=== PATIENT | male | born 1965 | race Caucasian/White ===

== ENCOUNTER 2020-12-11 12:54 | Emergency (ER) | payer SELFPAY ==
[~2020-12-11] VITALS: Ht 160 cm; Wt 65.8 kg
[2020-12-11 12:57] VITALS: BP_SYST 136
--- NOTE | 2020-12-11 13:04 | NUR ---
AMBULATED TO BED 7
--- NOTE | 2020-12-11 13:10 | NUR ---
Dr. farooq at bedside
--- NOTE | 2020-12-11 13:15 | NUR ---
PT CAME INTO ER FOR PAIN ON LEFT ARM, HX OF TENDON REPAIR 10/03 AND HE HAS HAD CHRONIC PAIN SINCE. TAKES IBUPROFEN AT HOME WITH NO RELIEF. AAOX4, V/S STABLE
[2020-12-11] MEDS ORDERED: IBUP-1969 PO ×2 (13:17→13:18)
[2020-12-11 13:29] VITALS: BP_SYST 136
--- NOTE | 2020-12-11 13:30 | NUR ---
Patient given written and verbal discharge instructions and verbalizes understanding. ER MD discussed with patient the results and treatment provided. Patient in stable condition. ID arm band removed. Rx of ibuprofen given. Patient educated on pain management and to follow up with PMD. Pain Scale 0/10 Opportunity for questions provided and answered. Medication side effect fact sheet provided.
== END 2020-12-11 13:29 | disposition home or self-care (01) ==
LOC: SED 12:54
DX: M79.632 Pain in left forearm (principal)
CPT/HCPCS: 99282